=== PATIENT | female | born 1980 | race Caucasian/White ===

== ENCOUNTER 2016-10-30 20:29 | Emergency (ER) | payer OTHER ==
[~2016-10-30] VITALS: Ht 172.7 cm; Wt 154.2 kg
[~2016-10-30 20:29] MED LIST: LABE100T3 PO; WARF2TAB PO
[2016-10-30 21:43] LABS: BASO % 1 % (0-3); EOS % 2 % (0-3); HEMATOCRIT 43.1 % (36.0-47.0); HEMOGLOBIN 13.9 g/dL (12.0-15.5); LYMPH # 1.3 x10^3/uL (1.0-4.8); LYMPH % 42 % (24-48); MEAN CORPUSCULAR HEMOGLOBIN 27 pg (25-35); MEAN CORPUSCULAR HGB CONC 32 g/dL (31-37); MEAN CORPUSCULAR VOLUME 83 fL (79-100); MONO % 7 % (0-9); NEUT % 48 % (31-73); PLATELET COUNT 189 x10^3/uL (140-400); RED CELL DISTRIBUTION WIDTH 14.9 % (11.5-14.5); WHITE BLOOD COUNT 3.2 x10^3/uL (4.0-11.0)
[2016-10-30] MEDS ORDERED: IV NORMAL SALINE 1000ML BAG 1,000 ML IV ONE (21:45)
[2016-10-30 21:58] LABS: GFR 62.4; POTASSIUM 3.8 mmol/L (3.5-5.1)
[2016-10-30 23:37] VITALS: BP 154/78
[2016-10-30] MEDS ORDERED: IBUP-1060 PO (23:59)
[2016-10-30] MEDS ORDERED: BENZ100C PO (23:59)
--- NOTE | 2016-10-30 23:59 | PHYS DOC ---
Past Medical History Past Medical History: Hypertension, Other Additional Past Medical Histor: obesity,miscarriage x2, PE Past Surgical History: Cholecystectomy, , Tubal ligation Additional Past Surgical Histo: tubal lig with reversal, Alcohol Use: None Drug Use: None Adult General Chief Complaint Chief Complaint: CHEST PAIN HPI HPI 36-year-old female who's had significant cough and pleuritic type chest pain for the last 2-3 days. She also states she's had some productive cough with sinus drainage and some body aches. She states she has been exposed to the flu at home. She denies any history of significant cardiac disease. She states her pain is only worse with deep breathing. She denies any significant shortness of breath at rest. Patient is speaking in complete sentences and in no acute distress at this time. Review of Systems Review of Systems Constitutional: Denies fever or chills [] Eyes: Denies change in visual acuity, redness, or eye pain [] HENT: Has nasal congestion, denies sore throat [] Respiratory: Has cough, denies shortness of breath [] Cardiovascular: No additional information not addressed in HPI [] GI: Denies abdominal pain, nausea, vomiting, bloody stools or diarrhea [] : Denies dysuria or hematuria [] Musculoskeletal: Denies back pain or joint pain [] Integument: Denies rash or skin lesions [] Neurologic: Denies headache, focal weakness or sensory changes [] Endocrine: Denies polyuria or polydipsia [] Current Medications Current Medications Current Medications Medications (Trade) Dose Ordered Sig/Porsha Start Time Stop Time Status Last Admin Dose Admin Sodium Chloride (Iv Sodium Chloride 0.9% 1000ml Bag) 1,000 ml @ 1,000 mls/hr 1X ONCE 10/30/16 21:45 10/30/16 22:44 DC 10/30/16 22:28 1,000 MLS/HR Allergies Allergies Allergies Coded Allergies Type Severity Reaction Last Updated Verified No Known Drug Allergies 01/22/14 No Physical Exam Physical Exam Constitutional: Well developed, well nourished, no acute distress, non-toxic appearance. [] HENT: Normocephalic, atraumatic, bilateral external ears normal, oropharynx moist, no oral exudates, nose normal. [] Eyes: PERRLA, EOMI, conjunctiva normal, no discharge. [] Neck: Normal range of motion, no tenderness, supple, no stridor. [] Cardiovascular:Heart rate regular rhythm, no murmur [] Lungs & Thorax: Bilateral breath sounds clear to auscultation [] Abdomen: Bowel sounds normal, soft, no tenderness, no masses, no pulsatile masses. [] Skin: Warm, dry, no erythema, no rash. [] Back: No tenderness, no CVA tenderness. [] Extremities: No tenderness, no cyanosis, no clubbing, ROM intact, no edema. [] Neurologic: Alert and oriented X 3, normal motor function, normal sensory function, no focal deficits noted. [] Psychologic: Affect normal, judgement normal, mood normal. [] Current Patient Data Vital Signs Vital Signs Date Time Temp Pulse Resp B/P Pulse Ox O2 Delivery O2 Flow Rate FiO2 10/30/16 23:37 70 20 154/78 98 Room Air 10/30/16 20:33 98.4 98.4 Lab Values Laboratory Tests Test 10/30/16 21:15 10/30/16 21:25 White Blood Count 3.2x10^3/uL (4.0-11.0) L Red Blood Count 5.20x10^6/uL (3.50-5.40) Hemoglobin 13.9g/dL (12.0-15.5) Hematocrit 43.1% (36.0-47.0) Mean Corpuscular Volume 83fL (79-100) Mean Corpuscular Hemoglobin 27pg (25-35) Mean Corpuscular Hemoglobin Concent 32g/dL (31-37) Red Cell Distribution Width 14.9% (11.5-14.5) H Platelet Count 189x10^3/uL (140-400) Neutrophils (%) (Auto) 48% (31-73) Lymphocytes (%) (Auto) 42% (24-48) Monocytes (%) (Auto) 7% (0-9) Eosinophils (%) (Auto) 2% (0-3) Basophils (%) (Auto) 1% (0-3) Neutrophils # (Auto) 1.5x10^3uL (1.8-7.7) L Lymphocytes # (Auto) 1.3x10^3/uL (1.0-4.8) Monocytes # (Auto) 0.2x10^3/uL (0.0-1.1) Eosinophils # (Auto) 0.1x10^3/uL (0.0-0.7) Basophils # (Auto) 0.0x10^3/uL (0.0-0.2) Sodium Level 144mmol/L (136-145) Potassium Level 3.8mmol/L (3.5-5.1) Chloride Level 106mmol/L (98-107) Carbon Dioxide Level 28mmol/L (21-32) Anion Gap 10 (6-14) Blood Urea Nitrogen 11mg/dL (7-20) Creatinine 1.0mg/dL (0.6-1.0) Estimated GFR (Cockcroft-Gault) 62.4 Glucose Level 113mg/dL (70-99) H Calcium Level 9.0mg/dL (8.5-10.1) Troponin I Quantitative < 0.017ng/mL (0.000-0.055) POC Urine HCG, Qualitative Hcg negative (Negative) Laboratory Tests 10/30/16 21:15 Laboratory Tests 10/30/16 21:15 EKG EKG [] Radiology/Procedures Radiology/Procedures One view of the chest as interpreted by me did not reveal an acute cardiopulmonary process. Course & Med Decision Making Course & Med Decision Making Pertinent Labs and Imaging studies reviewed. (See chart for details) This 36-year-old female with ongoing pleuritic type chest pain was given an IV fluid bolus and observed in the department for several hours. Her laboratory work was unremarkable. Patient felt improved upon my final reassessment and I' ll be discharging her with a dose of ibuprofen and Tessalon Perles and to follow closely with her primary care doctor in the next several days as I strongly believe her symptoms are due to a severe bronchitis and cough. She was discharged without incident. Dragon Disclaimer Dragon Disclaimer This electronic medical record was generated, in whole or in part, using a voice recognition dictation system. Departure Departure Impression: Primary Impression: Cough Additional Impression: Bronchitis Disposition: 01 HOME, SELF-CARE Admitting Physician: Other Condition: STABLE Referrals: NO PCP (PCP) Patient Instructions: Cough, Adult, [id number] Additional Instructions: Please follow up with your primary doctor in the next 2-3 days for your cough and chest pain. Take your medications as prescribed. Return to the ER if you develop any worsening of your symptoms. Scripts Benzonatate (Tessalon Perle)100 Mg [id number] Mg PO TID PRN COUGH #15 CAP Prov:BRANDON HERMAN DO 10/30/16 Ibuprofen 800 Mg [id number] Mg PO PRN Q6HRS PRN INFLAMMATION #20 TAB Prov:BRANDON HERMAN DO 10/30/16 Problem Qualifiers BRANDON HERMAN DO Oct 30, 2016 23:59
--- NOTE | 2016-10-31 07:26 | EKG ---
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
--- NOTE | 2016-10-31 08:13 | RAD ---
Exam performed: One view chest. Indication: chest pain Date of Service: 10/30/2016 11:35 PM Comparison: 04/17/15. Single AP upright portable view chest findings: Cardiomediastinal silhouette is within limits of normal. No acute infiltrates, effusion or pneumothorax is detected. The bony structures are normal. Impression: No acute cardiopulmonary process is detected.
== END 2016-10-31 00:33 | disposition home or self-care (01) ==
LOC: ER 20:29
DX: J40 Bronchitis, not specified as acute or chronic (principal); I10 Essential (primary) hypertension; R07.81 Pleurodynia; E66.9 Obesity, unspecified; Z68.43 Body mass index [BMI] 50.0-59.9, adult; Z90.49 Acquired absence of other specified parts of digestive tract; Z98.890 Other specified postprocedural states; Z98.51 Tubal ligation status
CPT/HCPCS: 36415; 71010; 80048; 81025; 84484; 85027; 93005; 96360; 99285; J7030

== ENCOUNTER 2018-10-24 16:21 | Emergency (ER) | payer OTHER ==
[~2018-10-24] VITALS: Ht 172.7 cm; Wt 133.8 kg
[~2018-10-24 16:21] MED LIST changes: +BENZ100C PO; +IBUP-1060 PO; -LABE100T3 PO; +LABE100T5 PO
[2018-10-24 17:47] VITALS: BP 128/72
[2018-10-24 18:04] LABS: BILIRUBIN,URINE NEGATIVE (NEG); CLARITY,URINE CLEAR; COLOR,URINE YELLOW; NITRITE,URINE NEGATIVE (NEG); PH,URINE 7.5; PROTEIN,URINE NEGATIVE (NEG-TRACE)
[2018-10-24 18:18] LABS: BACTERIA,URINE FEW /HPF (0-FEW); RBC,URINE OCC /HPF (0-2); SQUAMOUS EPITHELIAL CELL,UR MOD /LPF
--- NOTE | 2018-10-24 18:57 | PHYS DOC ---
Past Medical History Past Medical History: Hypertension, Other Additional Past Medical Histor: obesity,miscarriage x2, PE (RAEGANAMAURY APRN) Past Surgical History: Cholecystectomy, , Tubal ligation Additional Past Surgical Histo: tubal lig with reversal, (NEELAMAURY Degroot APRN) Alcohol Use: None Drug Use: None (RAEGANAMAURY APRN) Adult General Chief Complaint Chief Complaint: ABDOMINAL PAIN HPI HPI Patient is a 38 year old to the ED today requesting to be treated for BV. Patient states she's had vaginal discharge for a couple days and abdominal cramping. Patient states whenever she has this symptoms she has BV. (AMAURY CARLIN MARIANO) Review of Systems Review of Systems Constitutional: Denies fever or chills [] Eyes: Denies change in visual acuity, redness, or eye pain [] HENT: Denies nasal congestion or sore throat [] Respiratory: Denies cough or shortness of breath [] Cardiovascular: No additional information not addressed in HPI [] GI: Reports abdominal cramping, request for BV treatment, denies nausea, vomiting, bloody stools or diarrhea [] : Denies dysuria or hematuria [] Musculoskeletal: Denies back pain or joint pain [] Integument: Denies rash or skin lesions [] Neurologic: Denies headache, focal weakness or sensory changes [] All other systems were reviewed and found to be within normal limits, except as documented in this note. (AMAURY CARLIN MARIANO) Allergies Allergies Allergies Coded Allergies Type Severity Reaction Last Updated Verified No Known Drug Allergies 01/22/14 No (TERRI MICHAEL DO) Physical Exam Physical Exam Constitutional: Well developed, well nourished, no acute distress, non-toxic appearance. [] HENT: Normocephalic, atraumatic, bilateral external ears normal, oropharynx moist, no oral exudates, nose normal. [] Eyes: PERRLA, EOMI, conjunctiva normal, no discharge. [] Neck: Normal range of motion, no tenderness, supple, no stridor. [] Cardiovascular:Heart rate regular rhythm, no murmur [] Lungs & Thorax: Bilateral breath sounds clear to auscultation [] Abdomen: Bowel sounds normal, soft, no tenderness, no masses, no pulsatile masses. [] Pelvic exam deferred Skin: Warm, dry, no erythema, no rash. [] Back: No tenderness, no CVA tenderness. [] Extremities: No tenderness, no cyanosis, no clubbing, ROM intact, no edema. [] Neurologic: Alert and oriented X 3, normal motor function, normal sensory function, no focal deficits noted. [] Psychologic: Affect normal, judgement normal, mood normal. [] (AMAURY CARLIN APRN) Current Patient Data Vital Signs Vital Signs Date Time Temp Pulse Resp B/P (MAP) Pulse Ox O2 Delivery O2 Flow Rate FiO2 10/24/18 17:47 81 128/72 (90) 10/24/18 17:38 98.3 16 97 Room Air 98.3 (TERRI MICHAEL DO) Lab Values Laboratory Tests Test 10/24/18 16:35 10/24/18 17:45 Urine Collection Type Unknown Urine Color Yellow Urine Clarity Clear Urine pH 7.5 Urine Specific [place] 1.020 Urine Protein Negative mg/dL (NEG-TRACE) Urine Glucose (UA) Negative mg/dL (NEG) Urine Ketones (Stick) Negative mg/dL (NEG) Urine Blood Negative (NEG) Urine Nitrite Negative (NEG) Urine Bilirubin Negative (NEG) Urine Urobilinogen Dipstick 1.0 mg/dL (0.2 mg/dL) Urine Leukocyte Esterase Negative (NEG) Urine RBC Occ /HPF (0-2) Urine WBC 1-4 /HPF (0-4) Urine Squamous Epithelial Cells Mod /LPF Urine Bacteria Few /HPF (0-FEW) POC Urine HCG, Qualitative Hcg negative (Negative) (TERRI MICHAEL DO) EKG EKG [] (AMAURY CARLIN APRN) Radiology/Procedures Radiology/Procedures [] (AMAURY CARLIN APRN) Course & Med Decision Making Course & Med Decision Making Pertinent Labs and Imaging studies reviewed. (See chart for details) This is a 38-year-old female patient requesting treatment for BV, patient is refusing to be tested. Prescription for Flagyl provided. Urine analysis is negative for infection. (AMAURY CARLIN APRN) Dragon Disclaimer Dragon Disclaimer This electronic medical record was generated, in whole or in part, using a voice recognition dictation system. (AMAURY CARLIN APRN) Departure Departure Impression: Primary Impression: Bacterial vaginosis Disposition: HOME, SELF-CARE Condition: STABLE Referrals: NO PCP (PCP) Follow-up with your doctor in one week Patient Instructions: Bacterial Vaginosis, [id number] Additional Instructions: You were evaluated in the emergency room. We gave you prescription for Flagyl. Ensure you complete it. Scripts Metronidazole (FLAGYL) 500 Mg Tablet 1 TAB PO BID, #14 TAB Prov: AMAURY CARLIN APRN 10/24/18 Attending Signature Attending Signature I have reviewed the PA/INORGANIC CHEMIST's note and plan of care. I was available for consultation as needed during the patient's visit in the emergency department. I agree with the clinical impression, plan, and disposition. (TERRI MICHAEL DO) AMAURY CARLIN LEGAL COLLECTOR Oct 24, 2018 18:57 TERRI MICHAEL DO Oct 28, 2018 13:55
[2018-10-24] MEDS ORDERED: METR500T PO (19:00)
== END 2018-10-24 19:12 | disposition home or self-care (01) ==
LOC: ER 16:21
DX: N76.0 Acute vaginitis (principal); B96.89 Other specified bacterial agents as the cause of diseases classified elsewhere; I10 Essential (primary) hypertension; Z90.49 Acquired absence of other specified parts of digestive tract; Z98.51 Tubal ligation status
CPT/HCPCS: 81001; 81025; 99283

== ENCOUNTER 2019-02-13 20:35 | Emergency (ER) | payer SELFPAY ==
[~2019-02-13] VITALS: Ht 172.7 cm; Wt 136.1 kg
[~2019-02-13 20:35] MED LIST changes: +METR500T PO
[2019-02-13] MEDS ORDERED: FAMOTIDINE 20 MG/2 ML VIAL IVP ONE (21:00)
[2019-02-13] MEDS ORDERED: IV NORMAL SALINE 1000ML BAG 1,000 ML IV ONE (21:00)
[2019-02-13] MEDS ORDERED: ONDANSETRON PF 4 MG/2 ML VIAL. IV ONE (21:00)
[2019-02-13 21:08] LABS: BILIRUBIN,URINE NEGATIVE (NEG); CLARITY,URINE CLOUDY; COLOR,URINE YELLOW; NITRITE,URINE NEGATIVE (NEG); PROTEIN,URINE NEGATIVE (NEG-TRACE)
[2019-02-13 21:14] LABS: SQUAMOUS EPITHELIAL CELL,UR MOD /LPF
[2019-02-13 21:15] LABS: BACTERIA,URINE FEW /HPF (0-FEW)
[2019-02-13] MEDS ORDERED: AZITHROMYCIN 250 MG TABLET. PO ONE (21:15)
[2019-02-13] MEDS ORDERED: cefTRIAXone IM 250 MG VIAL IM ONE (21:15)
[2019-02-13 21:16] LABS: RBC,URINE OCC /HPF (0-2)
[2019-02-13 21:19] LABS: BASO # 0.1 x10^3/uL (0.0-0.2); BASO % 1 % (0-3); EOS # 0.1 x10^3/uL (0.0-0.7); EOS % 1 % (0-3); HEMATOCRIT 36.5 % (36.0-47.0); HEMOGLOBIN 12.1 g/dL (12.0-15.5); LYMPH # 1.6 x10^3/uL (1.0-4.8); LYMPH % 23 % (24-48); MEAN CORPUSCULAR HEMOGLOBIN 27 pg (25-35); MEAN CORPUSCULAR HGB CONC 33 g/dL (31-37); MEAN CORPUSCULAR VOLUME 82 fL (79-100); MONO # 0.4 x10^3/uL (0.0-1.1); MONO % 6 % (0-9); NEUT % 69 % (31-73); PLATELET COUNT 233 x10^3/uL (140-400); RED BLOOD COUNT 4.44 x10^6/uL (3.50-5.40); WHITE BLOOD COUNT 7.2 x10^3/uL (4.0-11.0)
[2019-02-13 21:52] LABS: PROTHROMBIN TIME PATIENT 13.7 SEC (11.7-14.0)
[2019-02-13 21:55] LABS: CALCIUM 8.7 mg/dL (8.5-10.1); CREATININE 0.9 mg/dL (0.6-1.0); GFR 69.7; POTASSIUM 3.9 mmol/L (3.5-5.1)
[2019-02-13 22:01] LABS: ALBUMIN 3.3 g/dL (3.4-5.0); ALBUMIN/GLOBULIN RATIO 0.8 (1.0-1.7); TOTAL BILIRUBIN 0.2 mg/dL (0.2-1.0); TOTAL PROTEIN 7.4 g/dL (6.4-8.2)
[2019-02-13] MEDS ORDERED: FLUCONAZOLE 100 MG TABLET. PO ONE (22:30)
--- NOTE | 2019-02-13 22:30 | PHYS DOC ---
Past Medical History Past Medical History: Hypertension, Other Additional Past Medical Histor: obesity,miscarriage x2, PE Past Surgical History: Cholecystectomy, , Tubal ligation Additional Past Surgical Histo: tubal lig with reversal, Smoking: Quit Greater Than 1 Year Alcohol Use: Rarely Drug Use: Marijuana Adult General Chief Complaint Chief Complaint: ABDOMINAL PAIN HPI HPI 38-year-old female presents with report of lower abdominal discomfort 2 days with associated nausea. Patient reports she just recently started her menstrual period. Reports yesterday was very heavy which now today is more back to normal. Patient reports she recently had unprotected sexual activity. Reports she is currently from her . Patient reports history of chronic bacterial vaginosis. Reports she has had a "fishy smell ". Patient denies any vaginal discharge. Denies diarrhea or constipation. Denies fever or chills. Review of Systems Review of Systems Constitutional: Denies fever or chills Eyes: Denies redness or eye pain HENT: Denies nasal congestion or sore throat Respiratory: Denies cough or shortness of breath Cardiovascular: Denies chest pain or palpitations GI: Reports abdominal pain and nausea; denies vomiting, diarrhea, or constipation : Denies dysuria or hematuria BRANCH OPERATIONS MANAGER: Reports vaginal bleeding and malodor; denies discharge Musculoskeletal: Denies back pain or joint pain Integument: Rash underneath abdominal pannus Neurologic: Denies headache, focal weakness or sensory changes Complete systems were reviewed and found to be within normal limits, except as documented in this note. Current Medications Current Medications Current Medications Medications (Trade) Dose Ordered Sig/Porsha Start Time Stop Time Status Last Admin Dose Admin Azithromycin (Zithromax) 1,000 mg 1X ONCE 02/13/19 21:15 02/13/19 21:26 DC 02/13/19 21:42 1,000 MG Ceftriaxone Sodium (Rocephin Im) 250 mg 1X ONCE 02/13/19 21:15 02/13/19 21:26 DC 02/13/19 21:42 250 MG Famotidine (Pepcid Vial) 20 mg 1X ONCE 02/13/19 21:00 02/13/19 21:01 DC 02/13/19 21:19 20 MG Fluconazole (Diflucan) 200 mg 1X ONCE 02/13/19 22:30 02/13/19 22:31 DC Ondansetron HCl (Zofran) 4 mg 1X ONCE 02/13/19 21:00 02/13/19 21:01 DC 02/13/19 21:18 4 MG Sodium Chloride 1,000 ml @ 1,000 mls/hr 1X ONCE 02/13/19 21:00 02/13/19 21:59 DC 02/13/19 21:17 1,000 MLS/HR Allergies Allergies Allergies Coded Allergies Type Severity Reaction Last Updated Verified No Known Drug Allergies 01/22/14 No Physical Exam Physical Exam Constitutional: Well developed, well nourished, no acute distress, non-toxic appearance HENT: Normocephalic, atraumatic, oropharynx moist Eyes: Conjunctiva normal, no discharge Neck: Normal range of motion, no tenderness, supple Cardiovascular: Heart rate normal, regular rhythm Lungs & Thorax: Bilateral breath sounds clear to auscultation, no wheezing Abdomen: Soft, no tenderness, no rebound tenderness, no distention, no guarding Skin: Warm, dry, no erythema, chronic appears rash beneath pannus BRANCH OPERATIONS MANAGER: Computer Sciences Professor Consuelo RN; external genitalia WNL, scant vaginal bleeding noted in vault, NO CMT, no adnexal tenderness Extremities: No tenderness, ROM intact, no edema Neurologic: Alert and oriented X 3, no focal deficits noted Psychologic: Affect normal, judgement normal Current Patient Data Vital Signs Vital Signs Date Time Temp Pulse Resp B/P (MAP) Pulse Ox O2 Delivery O2 Flow Rate FiO2 02/13/19 20:55 98.6 78 16 142/65 (90) 96 Room Air 98.6 Lab Values Laboratory Tests Test 02/13/19 20:50 02/13/19 21:02 02/13/19 21:10 02/13/19 21:30 Urine Collection Type Unknown Urine Color Yellow Urine Clarity Cloudy Urine pH 7.0 Urine Specific [place] 1.020 Urine Protein Negative mg/dL (NEG-TRACE) Urine Glucose (UA) Negative mg/dL (NEG) Urine Ketones (Stick) Negative mg/dL (NEG) Urine Blood Moderate (NEG) Urine Nitrite Negative (NEG) Urine Bilirubin Negative (NEG) Urine Urobilinogen Dipstick 1.0 mg/dL (0.2 mg/dL) Urine Leukocyte Esterase Small (NEG) Urine RBC Occ /HPF (0-2) Urine WBC 1-4 /HPF (0-4) Urine Squamous Epithelial Cells Mod /LPF Urine Bacteria Few /HPF (0-FEW) Urine Mucus Slight /LPF POC Urine HCG, Qualitative Hcg negative (Negative) White Blood Count 7.2 x10^3/uL (4.0-11.0) Red Blood Count 4.44 x10^6/uL (3.50-5.40) Hemoglobin 12.1 g/dL (12.0-15.5) Hematocrit 36.5 % (36.0-47.0) Mean Corpuscular Volume 82 fL (79-100) Mean Corpuscular Hemoglobin 27 pg (25-35) Mean Corpuscular Hemoglobin Concent 33 g/dL (31-37) Red Cell Distribution Width 15.0 % (11.5-14.5) H Platelet Count 233 x10^3/uL (140-400) Neutrophils (%) (Auto) 69 % (31-73) Lymphocytes (%) (Auto) 23 % (24-48) L Monocytes (%) (Auto) 6 % (0-9) Eosinophils (%) (Auto) 1 % (0-3) Basophils (%) (Auto) 1 % (0-3) Neutrophils # (Auto) 5.0 x10^3uL (1.8-7.7) Lymphocytes # (Auto) 1.6 x10^3/uL (1.0-4.8) Monocytes # (Auto) 0.4 x10^3/uL (0.0-1.1) Eosinophils # (Auto) 0.1 x10^3/uL (0.0-0.7) Basophils # (Auto) 0.1 x10^3/uL (0.0-0.2) Prothrombin Time 13.7 SEC (11.7-14.0) Prothrombin Time INR 1.1 (0.8-1.1) PTT 28 SEC (24-38) Sodium Level 142 mmol/L (136-145) Potassium Level 3.9 mmol/L (3.5-5.1) Chloride Level 105 mmol/L (98-107) Carbon Dioxide Level 28 mmol/L (21-32) Anion Gap 9 (6-14) Blood Urea Nitrogen 13 mg/dL (7-20) Creatinine 0.9 mg/dL (0.6-1.0) Estimated GFR (Cockcroft-Gault) 69.7 BUN/Creatinine Ratio 14 (6-20) Glucose Level 111 mg/dL (70-99) H Lactic Acid Level 1.0 mmol/L (0.4-2.0) Calcium Level 8.7 mg/dL (8.5-10.1) Magnesium Level 2.0 mg/dL (1.8-2.4) Total Bilirubin 0.2 mg/dL (0.2-1.0) Aspartate Amino Transferase (AST) 10 U/L (15-37) L Alanine Aminotransferase (ALT) 19 U/L (14-59) Alkaline Phosphatase 76 U/L (46-116) Total Protein 7.4 g/dL (6.4-8.2) Albumin 3.3 g/dL (3.4-5.0) L Albumin/Globulin Ratio 0.8 (1.0-1.7) L Lipase 111 U/L (73-393) Laboratory Tests 02/13/19 21:10 Laboratory Tests 02/13/19 21:30 Microbiology 02/13/19 Wet Prep - Final, Complete EKG EKG [] Radiology/Procedures Radiology/Procedures [] Course & Med Decision Making Course & Med Decision Making Pertinent Labs and Imaging studies reviewed. (See chart for details) Patient presents with history of abdominal/pelvic pain with associated nausea. Concern for possible STD given patient recent unprotected sexual activity. Abdomen nonperitoneal. Labs obtained and posted to chart. Pelvis exam performed. Chlamydia/Gonorrhea cultures pending. Wet mount positive for Clue Cells. Flagyl provided. Patient also noted to have candidal dermatitis. Reports currently on nystatin powder. Diflucan therefore provided. Patient stable for discharge with outpatient follow-up with PCP/BRANCH OPERATIONS MANAGER/GI. BRANCH OPERATIONS MANAGER and GI referrals provided. Discussed findings and plan with patient, who acknowledges understanding and agreement. Dragon Disclaimer Dragon Disclaimer This electronic medical record was generated, in whole or in part, using a voice recognition dictation system. Departure Departure Impression: Primary Impression: Abdominal pain Additional Impressions: Concern about STD in female without diagnosis Candidal dermatitis Bacterial vaginosis Disposition: 01 HOME, SELF-CARE Condition: STABLE Referrals: NO PCP (PCP) BETY DAMICO Jr, MD, SCOTT S MD Patient Instructions: Abdominal Pain (Nonspecific), Bacterial Vaginosis, [id number], Cutaneous Candidiasis, Pelvic Pain, Female, [id number] Scripts Metronidazole (FLAGYL) 500 Mg Tablet 500 MG PO TID for 7 Days, #21 TAB Prov: TERRI MICHAEL DO 02/13/19 Hyoscyamine Sulfate (LEVSIN-SL) 0.125 Mg Tab.subl 1-2 TAB SL PRN Q4HRS PRN for PAIN, #20 TAB Prov: TERRI MICHAEL DO 02/13/19 Fluconazole (DIFLUCAN) 150 Mg Tablet 1 TAB PO ONCE, #1 TAB Take this medication on 02/20/19 Prov: TERRI MICHAEL DO 02/13/19 Ondansetron (ONDANSETRON ODT) 4 Mg Tab.rapdis 1 TAB PO PRN Q6-8HRS PRN for NAUSEA, #16 TAB Prov: TERRI MICHAEL DO 02/13/19 Problem Qualifiers Primary Impression: Abdominal pain Abdominal location: lower abdomen, unspecified Qualified Codes: R10.30 - Lower abdominal pain, unspecified TERRI MICHAEL DO Feb 13, 2019 22:30
[2019-02-13] MEDS ORDERED: FLUC150T PO (22:45)
[2019-02-13] MEDS ORDERED: ONDA4TAB12 PO (22:45)
[2019-02-13] MEDS ORDERED: HYOS0.1265 SL (22:45)
[2019-02-13] MEDS ORDERED: METR500T PO (22:48)
[2019-02-13 23:00] VITALS: BP 145/67
[2019-02-13] MEDS ORDERED: metroNIDAZOLE 500 MG TABLET PO ONE (23:00)
[2019-02-17 15:15] LABS: GC PROBE Negative (Negative)
== END 2019-02-13 23:10 | disposition home or self-care (01) ==
LOC: ER 20:35
DX: N76.0 Acute vaginitis (principal); B96.89 Other specified bacterial agents as the cause of diseases classified elsewhere; B37.0 Candidal stomatitis; R10.30 Lower abdominal pain, unspecified; R11.0 Nausea; Z20.2 Contact with and (suspected) exposure to infections with a predominantly sexual mode of transmission; I10 Essential (primary) hypertension; E66.9 Obesity, unspecified; Z68.42 Body mass index [BMI] 45.0-49.9, adult; Z90.49 Acquired absence of other specified parts of digestive tract; Z98.890 Other specified postprocedural states; Z98.51 Tubal ligation status; Z87.891 Personal history of nicotine dependence; E65 Localized adiposity
CPT/HCPCS: 36415; 80053; 81001; 81025; 83605; 83690; 83735; 85025; 85610; 85730; 87086; 87491; 87591; 96372; 96374; 96375; 99284; J0696; J2405; J3490; J7030; Q0111; Q0144

== ENCOUNTER 2019-08-30 19:39 | Emergency (ER) | payer MEDICAID, OTHER ==
[~2019-08-30] VITALS: Ht 172.7 cm; Wt 136.1 kg
[~2019-08-30 19:39] MED LIST changes: +FLUC150T PO; +HYOS0.1265 SL; +ONDA4TAB12 PO
[2019-08-30 19:58] VITALS: BP 142/82
[2019-08-30 20:06] LABS: BILIRUBIN,URINE NEGATIVE (NEG); CLARITY,URINE CLOUDY; COLOR,URINE YELLOW; NITRITE,URINE NEGATIVE (NEG); PROTEIN,URINE NEGATIVE (NEG-TRACE)
--- NOTE | 2019-08-30 20:08 | PHYS DOC ---
Past Medical History Past Medical History: Hypertension, Other Additional Past Medical Histor: obesity,miscarriage x2, PE (MAY VANN) Past Surgical History: Cholecystectomy, , Tubal ligation Additional Past Surgical Histo: tubal lig with reversal, (MAY VANN) Alcohol Use: Rarely Drug Use: Marijuana (MAY VANN) Attending Signature I have participated in the care of this patient and I have reviewed and agree with all pertinent clinical information above including history, exam, and recommendations. (GLADIS STOUT MD) Adult General Chief Complaint Chief Complaint: FLANK PAIN HPI HPI Patient is a 39 year old F who comes in today for 2 days of low back pain and cloudy urine. She also has noticed some pain in her R breast and was concerned that she might be . She states she took a test at home that was negative but wanted to come in and get checked out. She denies fever, vomiting or diarrhea. (MAY VANN) Review of Systems Review of Systems Constitutional: Denies fever or chills [] HENT: Denies nasal congestion or sore throat [] Respiratory: Denies cough or shortness of breath [] Cardiovascular: Denies chest pain. R breast tenderness GI: Denies abdominal pain, vomiting, bloody stools or diarrhea. Reports nausea : Reports urinary frequency, dysuria Musculoskeletal: Reports low back pain B Neurologic: Denies headache, focal weakness or sensory changes [] All other systems were reviewed and found to be within normal limits, except as documented in this note. (MAY VANN) Allergies Allergies Allergies Coded Allergies Type Severity Reaction Last Updated Verified No Known Drug Allergies 01/22/14 No (GLADIS STOUT MD) Physical Exam Physical Exam Constitutional: Well developed, well nourished, no acute distress, non-toxic appearance. [] HENT: Normocephalic, atraumatic, bilateral external ears normal, oropharynx moist Neck: Normal range of motion, no tenderness, supple, no stridor. [] Cardiovascular:Heart rate regular rhythm, no murmur [] Lungs & Thorax: Bilateral breath sounds clear to auscultation [] Abdomen: Bowel sounds normal, soft, no tenderness, no masses, no pulsatile masses. [] Skin: Warm, dry, no erythema, no rash. [] Back: Lumbar tenderness bilaterally Extremities: No tenderness, no cyanosis, no clubbing, ROM intact, no edema. [] Neurologic: Alert and oriented X 3, normal motor function, normal sensory function, no focal deficits noted. [] Psychologic: Affect normal, judgement normal, mood normal. [] (MAY VANN) Current Patient Data Vital Signs Vital Signs Date Time Temp Pulse Resp B/P (MAP) Pulse Ox O2 Delivery O2 Flow Rate FiO2 08/30/19 19:58 98.6 83 16 142/82 (102) 97 Room Air 98.6 (GLADIS STOUT MD) Lab Values Laboratory Tests Test 08/30/19 19:55 08/30/19 19:56 Urine Collection Type Unknown Urine Color Yellow Urine Clarity Cloudy Urine pH 6.0 Urine Specific Libby 1.025 Urine Protein Negative mg/dL (NEG-TRACE) Urine Glucose (UA) Negative mg/dL (NEG) Urine Ketones (Stick) Negative mg/dL (NEG) Urine Blood Negative (NEG) Urine Nitrite Negative (NEG) Urine Bilirubin Negative (NEG) Urine Urobilinogen Dipstick 1.0 mg/dL (0.2 mg/dL) Urine Leukocyte Esterase Negative (NEG) Urine RBC Rare /HPF (0-2) Urine WBC Rare /HPF (0-4) Urine Squamous Epithelial Cells Many /LPF Urine Bacteria Few /HPF (0-FEW) Urine Mucus Mod /LPF POC Urine HCG, Qualitative Hcg negative (Negative) (GLADIS STOUT MD) EKG EKG [] (MAY VANN) Radiology/Procedures Radiology/Procedures [] (MAY VANN) Course & Med Decision Making Course & Med Decision Making Pertinent Labs and Imaging studies reviewed. (See chart for details) Pt's HCG negative. Discussed repeating test in 1 week if she doesn't have her menstrual cycle. Pt has mucous and bacteria in urine and clinical symptoms of UTI. Will cover and have asked pt to push fluids and f/u with PCP. (MAY VANN) Dragon Disclaimer Dragon Disclaimer This electronic medical record was generated, in whole or in part, using a voice recognition dictation system. (MAY VANN) Departure Departure Impression: Primary Impression: Urinary tract infection Disposition: 01 HOME, SELF-CARE Condition: STABLE Referrals: NO PCP (PCP) Patient Instructions: Urinary Tract Infection Additional Instructions: Push fluids. Your test was negative today, but we recommend repeating the test in 1 week to confirm negative result. Scripts Naproxen (NAPROSYN) 500 Mg Tablet 1 TAB PO BID PRN for PAIN for 7 Days, #14 TAB 0 Refills Prov: MAY VANN 08/30/19 Cephalexin (KEFLEX) 500 Mg Capsule 1 CAP PO TID for 7 Days, #21 CAP 0 Refills Prov: MAY VANN 08/30/19 MAY VANN Aug 30, 2019 20:08 GLADIS STOUT MD Sep 02, 2019 18:05
[2019-08-30 20:11] LABS: BACTERIA,URINE FEW /HPF (0-FEW); RBC,URINE RARE /HPF (0-2); WBC,URINE RARE /HPF (0-4)
[2019-08-30 20:12] LABS: SQUAMOUS EPITHELIAL CELL,UR MANY /LPF
[2019-08-30] MEDS ORDERED: CEPH-264 PO (20:27)
[2019-08-30] MEDS ORDERED: NAPR-683 PO (20:27)
== END 2019-08-30 20:37 | disposition home or self-care (01) ==
LOC: ER 19:39
DX: N39.0 Urinary tract infection, site not specified (principal); I10 Essential (primary) hypertension; Z98.51 Tubal ligation status; Z90.49 Acquired absence of other specified parts of digestive tract; E66.9 Obesity, unspecified; Z68.42 Body mass index [BMI] 45.0-49.9, adult
CPT/HCPCS: 81001; 81025; 99283; 99284

== ENCOUNTER 2020-02-02 12:45 | Emergency (ER) | payer OTHER ==
[~2020-02-02] VITALS: Ht 172.7 cm; Wt 140.9 kg
[~2020-02-02 12:45] MED LIST changes: +CEPH-264 PO; +NAPR-683 PO
--- NOTE | 2020-02-02 13:19 | PHYS DOC ---
Past Medical History Past Medical History: Hypertension, Other Additional Past Medical Histor: obesity,miscarriage x2, PE Past Surgical History: Cholecystectomy, , Tubal ligation Additional Past Surgical Histo: tubal lig with reversal, Smoking Status: Former Smoker Alcohol Use: Rarely Drug Use: Marijuana General Adult EDM: Chief Complaint: VAGINAL BLEEDING HPI: HPI: Patient is a 39 year old female who presents with states her last menstrual period was December 16. She states she took 2 test at home a couple weeks ago and they were positive. She states yesterday began to have slight abdominal cramping and some brown discharge and when she wiped after urinating she saw pink on the toilet paper. She states this morning she began having a light. This morning began having light bleeding without clots or abdominal pain. Denies any concern for sexually transmitted diseases. Refuses prophylactic treating today. Patient has a OB appointment with Dr. De La Paz at [facility] on February 04. Patient has had 2 miscarriages in the past and she has 5 living children. She has had C-sections with the children. She is had a history of a PE, hypertension, obesity, cholecystectomy. Patient is also had a tubal ligation with reversal. Currently denying any pain, nausea, vomiting, diarrhea, fever, back pain, dysuria symptoms, headache, dizziness, focal weakness, shortness of breath, chest pain, vision changes. Review of Systems: Review of Systems: : Denies dysuria. Vaginal bleeding [] Heart Score: Risk Factors: Risk Factors: DM, Current or recent (<one month) smoker, HTN, HLP, family history of CAD, obesity. Risk Scores: Score 0 - 3: 2.5% MACE over next 6 weeks - Discharge Home Score 4 - 6: 20.3% MACE over next 6 weeks - Admit for Clinical Observation Score 7 - 10: 72.7% MACE over next 6 weeks - Early Invasive Strategies Allergies: Allergies: Allergies Coded Allergies Type Severity Reaction Last Updated Verified No Known Drug Allergies 01/22/14 No Physical Exam: PE: Constitutional: Well developed, well nourished, no acute distress, non-toxic appearance. [] HENT: Normocephalic, atraumatic, bilateral external ears normal, oropharynx moist, no oral exudates, nose normal. [] Eyes: PERRLA, EOMI, conjunctiva normal, no discharge. [] Neck: Normal range of motion, no tenderness, supple, no stridor. [] Cardiovascular:Heart rate regular rhythm, no murmur [] Lungs & Thorax: Bilateral breath sounds clear to auscultation [] Abdomen: Bowel sounds normal, soft, no tenderness, no masses, no pulsatile masses. [] Skin: Warm, dry, no erythema, no rash. [] Back: No tenderness, no CVA tenderness. [] Extremities: No tenderness, no cyanosis, no clubbing, ROM intact, no edema. [] Neurologic: Alert and oriented X 3, normal motor function, normal sensory function, no focal deficits noted. [] Psychologic: Affect normal, judgement normal, mood normal. Normal physical exam [] EKG: EKG: [] Radiology/Procedures: Radiology/Procedures: [] Impression: [facility] [address] [place], [place] [id number] IMAGING REPORT Signed PATIENT: DEZ BALDWIN LACCOUNT: [id number] : 1980 LOCATION: ER AGE: 39 SEX: F EXAM STATUS: REG ER ORD. PHYSICIAN: ELSIE ROGER APRN REASON: vaginal bleeding, had +preg at home but negative here, hx tubal PROCEDURE: PELVIS COMPLETE Transabdominal and transvaginal sonography of the pelvis-OB ultrasound study less than 14 weeks. Clinical indications: Vaginal bleeding. Patient stated had positive test at home but test here at Hospital is negative. History of tubal . Transabdominal sonography: The uterus is anteverted in position. The uterus and ovaries are poorly visualized due to overlying bowel gas and incomplete distention of the urinary bladder. No adnexal mass or free fluid is seen. Therefore, transvaginal sonography will be performed. Transvaginal sonography: The uterus is anteverted in position. The longitudinal and AP and transverse dimensions of the uterus are 9.2 cm and 4.8 cm and 5.5 cm respectively. The endometrial canal measures 4.8 mm in thickness which is normal. No intrauterine gestational sac or fetus or heartbeat is seen. No uterine mass or fibroid is seen. No free fluid is seen within the cul-de-sac. Neither ovary is visualized. No adnexal mass is seen on either side. IMPRESSION: No intrauterine gestational sac is seen. In fact, the endometrial canal is not thickened. Neither ovary is visualized but no adnexal mass or free fluid is evident. Electronically signed by: Nicole Foreman MD (02/02/2020 3:02 PM) [id number] DICTATED and SIGNED BY: NICOLE FOREMAN MD DATE: 02/02/20 1502 Course & Med Decision Making: Course & Med Decision Making Pertinent Labs and Imaging studies reviewed. (See chart for details) Patient is morbidly obese and I was unable to see the cervix due to to this. Patient does have a small amount of bleeding without clots is seen. Patient states she is not soaking pads. Abdomen is soft and nontender. Alert and oriented. Afebrile. Speaks in full clear sentences. Ambulatory with a steady gait. I have done a chlamydia and gonorrhea swab on the patient she is educated she will be called in 48 hours only if this is positive. A wet prep was also done. Pelvic Exam: [employer] present Abdomen: Nontender External Genitalia: Normal Skin Speculum: Normal vaginal mucosa, bloody cervical discharge Bimanual: No adnexal masses or tenderness, No CMT [] Dragon Disclaimer: Dragon Disclaimer: This electronic medical record was generated, in whole or in part, using a voice recognition dictation system. Departure Departure Impression: Primary Impression: Vaginal bleeding Disposition: HOME, SELF-CARE Condition: STABLE Referrals: UNKNOWN PCP NAME (PCP) Patient Instructions: Dysmenorrhea, [id number] Additional Instructions: Keep your OB appointment. Take Tylenol for any pain. ELSIE ROGER RESEARCH FOOD TECHNOLOGIST Feb 02, 2020 13:19
[2020-02-02 13:25] LABS: BILIRUBIN,URINE NEGATIVE (NEG); CLARITY,URINE CLEAR; COLOR,URINE YELLOW; NITRITE,URINE NEGATIVE (NEG); PROTEIN,URINE NEGATIVE (NEG-TRACE)
[2020-02-02 13:30] LABS: BACTERIA,URINE 0 /HPF (0-FEW); RBC,URINE 0 /HPF (0-2); WBC,URINE 0 /HPF (0-4)
[2020-02-02 13:53] LABS: BASO % 1 % (0-3); EOS # 0.1 x10^3/uL (0.0-0.7); EOS % 2 % (0-3); HEMATOCRIT 36.7 % (36.0-47.0); HEMOGLOBIN 12.2 g/dL (12.0-15.5); LYMPH # 1.1 x10^3/uL (1.0-4.8); LYMPH % 20 % (24-48); MEAN CORPUSCULAR HEMOGLOBIN 27 pg (25-35); MEAN CORPUSCULAR HGB CONC 33 g/dL (31-37); MEAN CORPUSCULAR VOLUME 81 fL (79-100); MONO # 0.3 x10^3/uL (0.0-1.1); MONO % 5 % (0-9); NEUT % 72 % (31-73); PLATELET COUNT 206 x10^3/uL (140-400); RED BLOOD COUNT 4.54 x10^6/uL (3.50-5.40); RED CELL DISTRIBUTION WIDTH 14.8 % (11.5-14.5); WHITE BLOOD COUNT 5.5 x10^3/uL (4.0-11.0)
[2020-02-02 13:57] LABS: CALCIUM 8.2 mg/dL (8.5-10.1); CREATININE 1.1 mg/dL (0.6-1.0); POTASSIUM 3.6 mmol/L (3.5-5.1)
[2020-02-02 14:04] LABS: ALBUMIN 3.3 g/dL (3.4-5.0); ALBUMIN/GLOBULIN RATIO 0.9 (1.0-1.7); TOTAL BILIRUBIN 0.5 mg/dL (0.2-1.0); TOTAL PROTEIN 7.1 g/dL (6.4-8.2)
--- NOTE | 2020-02-02 15:05 | RAD ---
Transabdominal and transvaginal sonography of the pelvis-OB ultrasound study less than 14 weeks. Clinical indications: Vaginal bleeding. Patient stated had positive test at home but test here at Hospital is negative. History of tubal . Transabdominal sonography: The uterus is anteverted in position. The uterus and ovaries are poorly visualized due to overlying bowel gas and incomplete distention of the urinary bladder. No adnexal mass or free fluid is seen. Therefore, transvaginal sonography will be performed. Transvaginal sonography: The uterus is anteverted in position. The longitudinal and AP and transverse dimensions of the uterus are 9.2 cm and 4.8 cm and 5.5 cm respectively. The endometrial canal measures 4.8 mm in thickness which is normal. No intrauterine gestational sac or fetus or heartbeat is seen. No uterine mass or fibroid is seen. No free fluid is seen within the cul-de-sac. Neither ovary is visualized. No adnexal mass is seen on either side. IMPRESSION: No intrauterine gestational sac is seen. In fact, the endometrial canal is not thickened. Neither ovary is visualized but no adnexal mass or free fluid is evident. Electronically signed by: Elder Foreman MD (02/02/2020 3:02 PM) [id number]
[2020-02-02 15:25] VITALS: BP 143/64
[2020-02-03 22:08] LABS: GC PROBE Negative (Negative)
== END 2020-02-02 15:29 | disposition home or self-care (01) ==
LOC: ER 12:45
DX: N93.9 Abnormal uterine and vaginal bleeding, unspecified (principal); I10 Essential (primary) hypertension; Z87.891 Personal history of nicotine dependence; Z90.49 Acquired absence of other specified parts of digestive tract; Z98.51 Tubal ligation status; Z86.711 Personal history of pulmonary embolism; E66.9 Obesity, unspecified; Z68.42 Body mass index [BMI] 45.0-49.9, adult
CPT/HCPCS: 36415; 76856; 80053; 81001; 81025; 84702; 85025; 86850; 86900; 86901; 87491; 87591; 99284; Q0111